=== PATIENT | female | born 1990 | race Caucasian/White ===

== ENCOUNTER 2020-02-09 08:37 | Emergency (ER) | payer OTHER ==
[~2020-02-09] VITALS: Ht 170.2 cm; Wt 73.5 kg
[2020-02-09 08:46] VITALS: BP 126/88
--- NOTE | 2020-02-09 08:48 | NUR ---
Pt ambulated to bed 07, given urine cup.
[2020-02-09] MEDS ORDERED: IBUPROFEN 600 MG TAB PO ONE ×2 (09:00→09:45)
[2020-02-09] MEDS ORDERED: KETOROLAC 15 MG/ML VIAL IVP ONE ×2 (09:10→10:00)
[2020-02-09] MEDS ORDERED: NACL 0.9% 1,000 ML IV ONE (09:10)
[2020-02-09] MEDS ORDERED: MORPHINE SULFATE 2 MG/ML SYR IVP ONE ×3 (09:15→11:00)
[2020-02-09 09:37] LABS: BILIRUBIN,URINE NEGATIVE (NEGATIVE); BLOOD, URINE 3+ (NEGATIVE); COLOR,URINE YELLOW (YELLOW); LEUKOCYTE ESTERASE ,URINE 1+ (NEGATIVE); NITRITE, URINE NEGATIVE (NEGATIVE); PH,URINE 5.5 (5.0-9.0); UGLUCOSE NEGATIVE (NEGATIVE)
--- NOTE | 2020-02-09 09:39 | NUR ---
PT STATES THAT SHE DOES NOT WANT IV ANYMORE AFTER IV ATTEMPT FAILED, ERMD MADE AWARE
[2020-02-09] MEDS ORDERED: HYDROcodone/APAP 5/325 MG 1 TAB TAB PO ONE (09:45)
[2020-02-09 09:50] LABS: BASOPHILS % (AUTO) 0.4 % (0.0-2.0); EOSINOPHILS % (AUTO) 0.4 % (0.0-4.0); MEAN CORPUSCULAR HEMOGLOBIN 32 pg (27-31); MEAN CORPUSCULAR HGB CONC 34 g/dL (33-37); MEAN CORPUSCULAR VOLUME 94.5 fL (80-94); MONOCYTES # (AUTO) 0.4 K/uL (0.8-1.0); MONOCYTES % (AUTO) 5.4 % (1.7-9.3); NEUTROPHILS # (AUTO) 6.4 K/uL (1.8-7.7); NEUTROPHILS % (AUTO) 80.8 % (42.2-75.2); PLATELET COUNT (AUTO) 262 K/uL (140-450); RED BLOOD CELL COUNT(AUTO) 4.34 MIL/uL (4.20-5.40); RED CELL DISTRIBUTION WIDTH 12.3 % (11.6-13.7); WHITE BLOOD COUNT (AUTO) 7.9 K/uL (4.8-10.8)
--- NOTE | 2020-02-09 09:55 | NUR ---
20G IV placed to right ac with good blood return
[2020-02-09] MEDS ORDERED: MORPHINE SULFATE 2 MG/ML SYR ONE (09:56)
[2020-02-09 09:57] LABS: ANION GAP 12.3 (8-16); CREATININE 0.8 mg/dL (0.6-1.3); POTASSIUM 4.3 mmol/L (3.5-5.1)
[2020-02-09] MEDS ORDERED: KETOROLAC 15 MG/ML VIAL ONE (09:57)
[2020-02-09 10:02] LABS: ALBUMIN 4.2 g/dL (3.4-5.0); TOTAL BILIRUBIN 0.5 mg/dL (0.0-1.0)
[2020-02-09 10:06] LABS: APPEARANCE,URINE CLEAR (CLEAR)
--- NOTE | 2020-02-09 10:12 | NUR ---
PT ALERT AND AWAKE, BREATHING EVEN AND UNLABORED
[2020-02-09] MEDS ORDERED: KETOROLAC 15 MG/ML VIAL IVP SCH (10:15)
[2020-02-09] MEDS ORDERED: cefTRIAXone 1,000 MG VIAL ONE (11:02)
[2020-02-09 12:10] VITALS: BP 107/68
--- NOTE | 2020-02-09 12:10 | NUR ---
Patient discharged with v/s stable. Written and verbal after care instructions about ureteral colic given and explained. Patient alert, oriented and verbalized understanding of instructions. Ambulatory with steady gait. All questions addressed prior to discharge. ID band removed. Patient advised to follow up with PMD. Rx of keflex, motrin, flomax, norco given. Patient educated on indication of medication including possible reaction and side effects. Opportunity to ask questions provided and answered. Pt states she will have ride take her home, understands not to drive with norco.
== END 2020-02-09 12:10 | disposition home or self-care (01) ==
LOC: MED 08:37
DX: N39.0 Urinary tract infection, site not specified (principal); N20.1 Calculus of ureter; R10.9 Unspecified abdominal pain; R82.81 Pyuria; N83.201 Unspecified ovarian cyst, right side; N20.0 Calculus of kidney; Z88.8 Allergy status to other drugs, medicaments and biological substances
CPT/HCPCS: 36415; 74176; 80053; 81001; 81025; 85025; 87086; 96361; 96365; 96375; 96376; 99284; J0696; J1885; J2270; J7030; 96374

== ENCOUNTER 2022-07-13 19:57 | Emergency (ER) | payer OTHER ==
[~2022-07-13] VITALS: Ht 170.2 cm; Wt 77.1 kg
[2022-07-13 20:20] VITALS: BP 140/89
--- NOTE | 2022-07-13 20:23 | NUR ---
TO LOBBY A/W BED AMBULATORY
[2022-07-13 20:25] VITALS: BP 140/89
[2022-07-13 21:21] LABS: BASOPHILS % (AUTO) 0.5 % (0.0-2.0); EOSINOPHILS # (AUTO) 0.1 K/uL (0-0.4); EOSINOPHILS % (AUTO) 1.3 % (0.0-4.0); HEMATOCRIT 37.7 % (36-48); HEMOGLOBIN 12.9 g/dL (12.0-16.0); LYMPHOCYTES # (AUTO) 2.5 K/uL (2.5-16.5); LYMPHOCYTES % (AUTO) 26.7 % (20.5-51.1); MEAN CORPUSCULAR HEMOGLOBIN 32 pg (27-31); MEAN CORPUSCULAR HGB CONC 34 g/dL (33-37); MEAN CORPUSCULAR VOLUME 93.7 fL (80-94); MONOCYTES # (AUTO) 0.5 K/uL (0.8-1.0); MONOCYTES % (AUTO) 5.8 % (1.7-9.3); NEUTROPHILS # (AUTO) 6.1 K/uL (1.8-7.7); NEUTROPHILS % (AUTO) 65.7 % (42.2-75.2); PLATELET COUNT (AUTO) 282 K/uL (140-450); RED BLOOD CELL COUNT(AUTO) 4.02 MIL/uL (4.20-5.40); RED CELL DISTRIBUTION WIDTH 12.7 % (11.6-13.7); WHITE BLOOD COUNT (AUTO) 9.3 K/uL (4.8-10.8)
[2022-07-13 21:24] LABS: APPEARANCE,URINE CLEAR (CLEAR); BILIRUBIN,URINE NEGATIVE (NEGATIVE); BLOOD, URINE NEGATIVE (NEGATIVE); LEUKOCYTE ESTERASE ,URINE NEGATIVE (NEGATIVE); NITRITE, URINE NEGATIVE (NEGATIVE); PH,URINE 5.5 (5.0-9.0); UGLUCOSE NEGATIVE (NEGATIVE)
[2022-07-13 21:29] LABS: COLOR,URINE STRAW (YELLOW)
[2022-07-13 21:39] LABS: ALBUMIN 4.1 g/dL (3.4-5.0); CARBON DIOXIDE 30.2 mmol/L (21-32); CREATININE 0.8 mg/dL (0.6-1.3); POTASSIUM 4.2 mmol/L (3.5-5.1); TOTAL BILIRUBIN 0.2 mg/dL (0.0-1.0)
[2022-07-13] MEDS ORDERED: KETOROLAC 30 MG/ML VIAL IM ONE (22:20)
[2022-07-14] MEDS ORDERED: DOCU1TAB73 PO (00:20)
[2022-07-14] MEDS ORDERED: MIRABULK PO (00:20)
[2022-07-14] MEDS ORDERED: HYDROcodone/APAP 5/325 MG 1 TAB TAB PO ONE (00:40)
--- NOTE | 2022-07-14 00:50 | NUR ---
Patient discharged with v/s stable. Written and verbal after care instructions given and explained. Patient verbalized understanding. Ambulatory with steady gait. All questions addressed prior to discharge. Advised to follow up with PMD.
== END 2022-07-14 00:50 | disposition home or self-care (01) ==
LOC: MED 19:57
DX: K59.00 Constipation, unspecified (principal); R10.31 Right lower quadrant pain; N20.0 Calculus of kidney; Z88.8 Allergy status to other drugs, medicaments and biological substances; Z79.899 Other long term (current) drug therapy
CPT/HCPCS: 36415; 74176; 76856; 80053; 81003; 81025; 83690; 85025; 93976; 96372; 99285; J1885

== ENCOUNTER 2022-09-30 12:15 | Emergency (ER) | payer OTHER ==
[~2022-09-30] VITALS: Ht 170.2 cm; Wt 75.7 kg
[~2022-09-30 12:15] MED LIST: DOCU1TAB73 PO; MIRABULK PO
[2022-09-30 12:27] VITALS: BP 128/83
[2022-09-30 12:56] LABS: APPEARANCE,URINE SL CLOUDY (CLEAR); BILIRUBIN,URINE NEGATIVE (NEGATIVE); BLOOD, URINE 1+ (NEGATIVE); COLOR,URINE YELLOW (YELLOW); LEUKOCYTE ESTERASE ,URINE 2+ (NEGATIVE); NITRITE, URINE NEGATIVE (NEGATIVE); UGLUCOSE NEGATIVE (NEGATIVE)
--- NOTE | 2022-09-30 13:11 | NUR ---
PT AMBULATED TO BED 1 C.O BILAT FLANK PAIN
[2022-09-30] MEDS ORDERED: KETOROLAC 30 MG/ML VIAL IVP ONE (13:25)
[2022-09-30] MEDS ORDERED: NACL 0.9% 1,000 ML IV SCH (13:25)
[2022-09-30 13:44] LABS: BASOPHILS % (AUTO) 0.5 % (0.0-2.0); EOSINOPHILS # (AUTO) 0.1 K/uL (0-0.4); EOSINOPHILS % (AUTO) 1.9 % (0.0-4.0); HEMATOCRIT 38.6 % (36-48); HEMOGLOBIN 13.1 g/dL (12.0-16.0); LYMPHOCYTES # (AUTO) 1.5 K/uL (2.5-16.5); LYMPHOCYTES % (AUTO) 25.2 % (20.5-51.1); MEAN CORPUSCULAR HEMOGLOBIN 32 pg (27-31); MEAN CORPUSCULAR HGB CONC 34 g/dL (33-37); MEAN CORPUSCULAR VOLUME 94.6 fL (80-94); MONOCYTES # (AUTO) 0.5 K/uL (0.8-1.0); MONOCYTES % (AUTO) 7.7 % (1.7-9.3); NEUTROPHILS # (AUTO) 3.9 K/uL (1.8-7.7); NEUTROPHILS % (AUTO) 64.7 % (42.2-75.2); PLATELET COUNT (AUTO) 272 K/uL (140-450); RED BLOOD CELL COUNT(AUTO) 4.08 MIL/uL (4.20-5.40); RED CELL DISTRIBUTION WIDTH 12.9 % (11.6-13.7)
[2022-09-30 14:02] LABS: ALBUMIN 3.9 g/dL (3.4-5.0); ANION GAP 9.1 (8-16); CREATININE 0.8 mg/dL (0.6-1.3); POTASSIUM 4.1 mmol/L (3.5-5.1); TOTAL BILIRUBIN 0.5 mg/dL (0.0-1.0)
[2022-09-30] MEDS ORDERED: cefTRIAXone 1,000 MG VIAL ONE (15:15)
[2022-09-30] MEDS ORDERED: IBUP-2213 PO (16:15)
[2022-09-30] MEDS ORDERED: CEPH250C16 PO (16:15)
[2022-09-30] MEDS ORDERED: ACET-10509 PO (16:15)
[2022-09-30] MEDS ORDERED: ONDA-188 SL (16:17)
[2022-09-30 16:41] VITALS: BP 118/70
--- NOTE | 2022-09-30 16:42 | NUR ---
patient tolerated treatment well condition stable d/c home with instructions after care reviewed understood left er via self ambulatory with steady gait.
== END 2022-09-30 16:42 | disposition home or self-care (01) ==
LOC: MED 12:15
DX: N12 Tubulo-interstitial nephritis, not specified as acute or chronic (principal); J45.909 Unspecified asthma, uncomplicated; Z79.899 Other long term (current) drug therapy; Z88.8 Allergy status to other drugs, medicaments and biological substances
CPT/HCPCS: 36415; 74176; 80053; 81001; 81025; 83690; 85025; 87086; 96361; 96365; 96375; 99285; J0696; J1885; J7030

== ENCOUNTER 2022-11-10 20:29 | Emergency (ER) | payer OTHER ==
[~2022-11-10] VITALS: Ht 170.2 cm; Wt 74.8 kg
[~2022-11-10 20:29] MED LIST changes: +ACET-10509 PO; +CEPH250C16 PO; +IBUP-2213 PO; +ONDA-188 SL
[2022-11-10 20:54] VITALS: BP 125/90; PULSE 83; RESP 20; TEMP 98; O2SAT 98
[2022-11-10] MEDS ORDERED: MORPHINE SULFATE 4 MG/ML SYR IVP ONE ×2 (21:10→23:50)
[2022-11-10] MEDS ORDERED: ONDANSETRON 4 MG/2 ML VIAL IVP ONE (21:10)
[2022-11-10] MEDS ORDERED: NACL 0.9% 1,000 ML IV SCH (21:10)
--- NOTE | 2022-11-10 21:14 | NUR ---
URINE GIVEN TO LAB.
[2022-11-10 21:20] VITALS: TEMP 98
[2022-11-10 21:45] LABS: APPEARANCE,URINE CLEAR (CLEAR); BILIRUBIN,URINE NEGATIVE (NEGATIVE); BLOOD, URINE 1+ (NEGATIVE); COLOR,URINE YELLOW (YELLOW); LEUKOCYTE ESTERASE ,URINE NEGATIVE (NEGATIVE); NITRITE, URINE NEGATIVE (NEGATIVE); UGLUCOSE NEGATIVE (NEGATIVE)
[2022-11-10 21:49] LABS: BASOPHILS % (AUTO) 0.3 % (0.0-2.0); EOSINOPHILS # (AUTO) 0.1 K/uL (0-0.4); EOSINOPHILS % (AUTO) 1.2 % (0.0-4.0); HEMATOCRIT 36.7 % (36-48); HEMOGLOBIN 12.6 g/dL (12.0-16.0); LYMPHOCYTES # (AUTO) 1.9 K/uL (2.5-16.5); LYMPHOCYTES % (AUTO) 19.7 % (20.5-51.1); MEAN CORPUSCULAR HEMOGLOBIN 32 pg (27-31); MEAN CORPUSCULAR HGB CONC 34 g/dL (33-37); MEAN CORPUSCULAR VOLUME 94.6 fL (80-94); MONOCYTES # (AUTO) 0.8 K/uL (0.8-1.0); MONOCYTES % (AUTO) 7.9 % (1.7-9.3); NEUTROPHILS # (AUTO) 6.9 K/uL (1.8-7.7); NEUTROPHILS % (AUTO) 70.9 % (42.2-75.2); PLATELET COUNT (AUTO) 271 K/uL (140-450); RED BLOOD CELL COUNT(AUTO) 3.88 MIL/uL (4.20-5.40); RED CELL DISTRIBUTION WIDTH 12.6 % (11.6-13.7); WHITE BLOOD COUNT (AUTO) 9.7 K/uL (4.8-10.8)
--- NOTE | 2022-11-10 21:56 | NUR ---
Patient taken to CT.
[2022-11-10 21:58] LABS: YEAST,URINE Few /HPF (None Seen)
[2022-11-10 22:07] LABS: ALBUMIN 3.4 g/dL (3.4-5.0); ANION GAP 13.6 (8-16); CARBON DIOXIDE 26.5 mmol/L (21-32); CREATININE 0.9 mg/dL (0.6-1.3); POTASSIUM 4.1 mmol/L (3.5-5.1); TOTAL BILIRUBIN 0.3 mg/dL (0.0-1.0)
[2022-11-10 22:09] LABS: PROTHROMBIN TIME 9.8 secs (10.8-13.4)
--- NOTE | 2022-11-10 23:13 | NUR ---
Patient is a 31/F, known case of kidney stones & ovarian cyst, came in due to right lower quadrant pain, 10, sharp, associated with nausea, dysuria, vaginal bleeding x 4 days ago after patient had IUD removal. Patient denies fever/chills/vomiting. Patient took Ibuprofen and [place] with minimal symptom relief. PMHx: Asthma, kidney stones, ovarian cyst Allergies: Carisoprodol
[2022-11-10] MEDS ORDERED: diphenhydrAMINE 50 MG/ML VIAL IVP ONE (23:50)
[2022-11-11] MEDS ORDERED: FLUCONAZOLE 100 MG TAB PO ONE (00:15)
--- NOTE | 2022-11-11 00:15 | NUR ---
Patient awake in bed with no signs of acute distress at this time. Side rails up and call light within reach.
--- NOTE | 2022-11-11 00:43 | NUR ---
As per ERMD, patient may have oral intake. Patient given 2 packs of crackers and 1 cup of water.
--- NOTE | 2022-11-11 02:19 | NUR ---
Patient asleep and comfortable in bed with no signs of acute distress at this time. Side rails up and call light within reach.
[2022-11-11] MEDS ORDERED: KETOROLAC 30 MG/ML VIAL IVP ONE (03:05)
[2022-11-11] MEDS ORDERED: IBUP-2213 PO (03:14)
[2022-11-11] MEDS ORDERED: ACET-10509 PO (03:14)
--- NOTE | 2022-11-11 03:40 | NUR ---
Patient discharged with v/s stable. Written and verbal after care instructions given and explained. Patient alert, oriented and verbalized understanding of instructions. Ambulatory with steady gait. All questions addressed prior to discharge. ID band removed. Patient advised to follow up with PMD. Rx of [place], Tylenol and Ibuprofen given. Patient educated on indication of medication including possible reaction and side effects. Opportunity to ask questions provided and answered.
[2022-11-11 03:54] VITALS: BP 121/82; PULSE 79; RESP 14; O2SAT 97
== END 2022-11-11 03:40 | disposition home or self-care (01) ==
LOC: MED 20:29
DX: N83.201 Unspecified ovarian cyst, right side (principal); N39.0 Urinary tract infection, site not specified; B37.9 Candidiasis, unspecified; J45.909 Unspecified asthma, uncomplicated; Z87.442 Personal history of urinary calculi; Z98.890 Other specified postprocedural states; Z79.899 Other long term (current) drug therapy; Z88.1 Allergy status to other antibiotic agents
CPT/HCPCS: 36415; 74176; 76856; 80053; 81001; 81025; 82553; 83605; 83690; 85025; 85610; 85730; 87040; 87086; 93976; 96361; 96374; 96375; 96376; 99285; J1200; J1885; J2270; J2405; J7030; Q0092